=== PATIENT | female | born 1975 | race Caucasian/White ===

== ENCOUNTER 2020-03-01 15:06 | Inpatient (IN) | payer BC, OTHER ==
[~2020-03-01] VITALS: Ht 182.9 cm; Wt 95.8 kg
--- NOTE | 2020-03-01 15:13 | NUR ---
No answer from lobby when pt called for triage.
[2020-03-01] MEDS ORDERED: ONDANSETRON 2MG/ML, 2ML ONE (15:44)
[2020-03-01] MEDS ORDERED: LORazepam 2 MG/ML, 1ML ONE ×3 (15:45→18:32)
[2020-03-01 15:55] LABS: BASOPHILS # (AUTO) 0.01 x10^3/uL (0-0.1); BASOPHILS % (AUTO) 0 % (0-1); EOSINOPHILS # (AUTO) 0.05 x10^3/uL (0-0.4); EOSINOPHILS % (AUTO) 0 % (1-7); LYMPHOCYTES # (AUTO) 3.63 x10^3/uL (1-3.4); LYMPHOCYTES % (AUTO) 31 % (22-44); MD NO; MEAN CORPUSCULAR HEMOGLOBIN 26.7 pg (27.0-34.8); MEAN CORPUSCULAR HGB CONC 32.8 g/dL (32.4-35.8); MEAN CORPUSCULAR VOLUME 81.3 fL (80-100); MEAN PLATELET VOLUME 8.6 fL (7.4-10.4); MONOCYTES # (AUTO) 0.45 x10^3/uL (0.2-0.8); MONOCYTES % (AUTO) 4 % (2-9); NEUTROPHILS # (AUTO) 7.66 x10^3/uL (1.8-6.8); NEUTROPHILS % (AUTO) 65 % (42-75); PLATELET COUNT 364 x10^3/uL (130-400); RED BLOOD COUNT 4.99 x10^6/uL (3.82-5.3); RED CELL DISTRIBUTION WIDTH 17.7 % (9.6-15.2)
[2020-03-01] MEDS: LORazepam 2 MG/ML, 1ML IVPush PRN ×5 (15:57→21:35)
--- NOTE | 2020-03-01 15:58 | NUR ---
PT MEDICATED PER NOV. PARENT AT BEDSIDE. SZ PRECAUTIONS IN PLACE.
[2020-03-01] MEDS ORDERED: ONDANSETRON 2MG/ML, 2ML IVPush ONE (16:00)
[2020-03-01] MEDS ORDERED: THIAMINE 100 MG in SODIUM CHLORIDE 0.9% 50 ML IVPB ONE (16:00)
[2020-03-01] MEDS ORDERED: SODIUM CHLORIDE 0.9% 1,000ML IVBOLUS ONE ×2 (16:00→19:00)
[2020-03-01 16:07] LABS: ALANINE AMINOTRANSFERASE 37 U/L (12-78); ALBUMIN 3.8 g/dL (3.4-5.0); ANION GAP 14 mmol/L (5-15); CALCIUM 8.2 mg/dL (8.5-10.1); CHLORIDE 97 mmol/L (98-107); CREATININE 0.78 mg/dL (0.55-1.02)
[2020-03-01 16:10] LABS: ALKALINE PHOSPHATASE 91 U/L (45-117); BILIRUBIN,TOTAL 0.8 mg/dL (0.2-1.0); TOTAL PROTEIN 7.8 g/dL (6.4-8.2)
--- NOTE | 2020-03-01 16:39 | NUR ---
PT RESTING ON [place]. [place]. MOTHER AT BEDSIDE.
--- NOTE | 2020-03-01 17:50 | NUR ---
REPORT TO TITUS GELLER.
--- NOTE | 2020-03-01 18:08 | NUR ---
HOSPITALIST AT BEDSIDE.
[2020-03-01] MEDS ORDERED: CHLORDIAZEPOXIDE 25 MG CAPSULE PO PRN (18:30)
[2020-03-01] MEDS ORDERED: POLYETHYLENE GLYCOL 17 GM PACKET PO PRN (18:30)
[2020-03-01] MEDS ORDERED: BISACODYL 10 MG SUPP PR PRN (18:30)
[2020-03-01] MEDS ORDERED: ONDANSETRON 2MG/ML, 2ML IVPush PRN (18:30)
[2020-03-01] MEDS ORDERED: hydrALAzine 20 MG/ML, 1ML IVPush PRN (18:30)
--- NOTE | 2020-03-01 18:43 | NUR ---
MEDS ADMIN PER MAR AND HOSPITALIST.
[2020-03-01] MEDS ORDERED: POTASSIUM CHLORIDE 20 MEQ, MAGNESIUM SULFATE 1 GM, THIAMINE 200 MG, FOLIC ACID 1 MG, MV... IV SCH ×2 (19:00)
[2020-03-02 00:07] VITALS: BP 109/69
[2020-03-02] MEDS: LORazepam 2 MG/ML, 1ML IVPush PRN ×5 (01:34→08:58)
[2020-03-02 05:26] LABS: INTERNATIONAL NORMALIZED RATIO 1.12 (0.93-1.1); PROTHROMBIN TIME 11.9 Seconds (9.6-11.5)
[2020-03-02 05:31] LABS: CHLORIDE 106 mmol/L (98-107)
[2020-03-02 05:40] LABS: ALANINE AMINOTRANSFERASE 34 U/L (12-78); ALBUMIN 3.3 g/dL (3.4-5.0); ALKALINE PHOSPHATASE 83 U/L (45-117); ANION GAP 13 mmol/L (5-15); BILIRUBIN,TOTAL 1.2 mg/dL (0.2-1.0); CREATININE 0.64 mg/dL (0.55-1.02)
[2020-03-02 06:27] LABS: BASOPHILS # (AUTO) 0.02 x10^3/uL (0-0.1); BASOPHILS % (AUTO) 0 % (0-1); EOSINOPHILS # (AUTO) 0.02 x10^3/uL (0-0.4); EOSINOPHILS % (AUTO) 0 % (1-7); LYMPHOCYTES # (AUTO) 1.63 x10^3/uL (1-3.4); LYMPHOCYTES % (AUTO) 19 % (22-44); MD NO; MEAN CORPUSCULAR HEMOGLOBIN 26.4 pg (27.0-34.8); MEAN CORPUSCULAR HGB CONC 32.2 g/dL (32.4-35.8); MEAN PLATELET VOLUME 7.8 fL (7.4-10.4); MONOCYTES # (AUTO) 0.63 x10^3/uL (0.2-0.8); MONOCYTES % (AUTO) 7 % (2-9); NEUTROPHILS # (AUTO) 6.47 x10^3/uL (1.8-6.8); NEUTROPHILS % (AUTO) 74 % (42-75); PLATELET COUNT 270 x10^3/uL (130-400); RED BLOOD COUNT 4.57 x10^6/uL (3.82-5.3); RED CELL DISTRIBUTION WIDTH 17.5 % (9.6-15.2)
[2020-03-02 07:03] LABS: MICROSCOPIC INDICATED
[2020-03-02 07:08] VITALS: BP 150/88
[2020-03-02] MEDS: PANTOPRAZOLE 40MG TABLET PO SCH (07:34)
[2020-03-02] MEDS: SENNA/DOCUSATE TABLET PO SCH (09:00)
[2020-03-02] MEDS: DULOXETINE 30 MG CAPSULE.DR PO SCH (09:09)
[2020-03-02] MEDS ORDERED: PHENOBARBITAL ETOH DETOX PER PHARMACY MC PRN (10:00)
[2020-03-02] MEDS ORDERED: PHENOBARBITAL SODIUM 780 MG in SODIUM CHLORIDE 0.9% 50 ML IV ONE (10:30)
[2020-03-02] MEDS: ENOXAPARIN 40 MG/0.4 ML SQ SCH (10:50)
[2020-03-02] MEDS ORDERED: PHENOBARBITAL SODIUM IV ONE (13:00)
[2020-03-02] MEDS ORDERED: SODIUM CHLORIDE 0.9% IV ONE (13:00)
[2020-03-02] MEDS: LACTATED RINGERS 1,000 ML IV SCH (17:30)
[2020-03-02] MEDS: ACETAMINOPHEN 325 MG TABLET PO PRN (21:10)
[2020-03-03] MEDS: PHENOBARBITAL 20 MG/5 ML ORAL SOL PO SCH ×2 (00:44→12:30)
[2020-03-03] MEDS: LACTATED RINGERS 1,000 ML IV SCH (04:24)
[2020-03-03] MEDS ORDERED: POTASSIUM CHLORIDE 20 MEQ, MAGNESIUM SULFATE 1 GM, MVI ADULT 10 ML, THIAMINE 200 MG, FO... IV SCH (05:00)
[2020-03-03 05:25] LABS: ALANINE AMINOTRANSFERASE 29 U/L (12-78); ALBUMIN 2.9 g/dL (3.4-5.0); ANION GAP 7 mmol/L (5-15); CALCIUM 7.7 mg/dL (8.5-10.1); CHLORIDE 104 mmol/L (98-107)
[2020-03-03 05:27] LABS: ALKALINE PHOSPHATASE 83 U/L (45-117); BILIRUBIN,TOTAL 1.6 mg/dL (0.2-1.0); TOTAL PROTEIN 6.3 g/dL (6.4-8.2)
[2020-03-03 05:30] LABS: BASOPHILS # (AUTO) 0.03 x10^3/uL (0-0.1); BASOPHILS % (AUTO) 0 % (0-1); EOSINOPHILS # (AUTO) 0.22 x10^3/uL (0-0.4); EOSINOPHILS % (AUTO) 3 % (1-7); LYMPHOCYTES # (AUTO) 2.46 x10^3/uL (1-3.4); LYMPHOCYTES % (AUTO) 29 % (22-44); MD NO; MEAN CORPUSCULAR HGB CONC 32.9 g/dL (32.4-35.8); MEAN CORPUSCULAR VOLUME 81.9 fL (80-100); MEAN PLATELET VOLUME 9.4 fL (7.4-10.4); MONOCYTES # (AUTO) 0.58 x10^3/uL (0.2-0.8); MONOCYTES % (AUTO) 7 % (2-9); NEUTROPHILS % (AUTO) 61 % (42-75); PLATELET COUNT 220 x10^3/uL (130-400); RED BLOOD COUNT 4.45 x10^6/uL (3.82-5.3); RED CELL DISTRIBUTION WIDTH 17.7 % (9.6-15.2)
[2020-03-03] MEDS: PANTOPRAZOLE 40MG TABLET PO SCH (07:49)
[2020-03-03] MEDS: SENNA/DOCUSATE TABLET PO SCH (07:50)
[2020-03-03] MEDS: DULOXETINE 30 MG CAPSULE.DR PO SCH (07:50)
[2020-03-03] MEDS: FOLIC ACID 1 MG TABLET PO SCH (07:50)
[2020-03-03] MEDS: THIAMINE 100MG TABLET PO SCH (07:50)
[2020-03-03] MEDS: ENOXAPARIN 40 MG/0.4 ML SQ SCH (09:07)
[2020-03-03 13:39] VITALS: BP 138/87
[2020-03-03 20:40] VITALS: BP 155/89
[2020-03-04 00:28] VITALS: BP 119/82
[2020-03-04] MEDS: PHENOBARBITAL 20 MG/5 ML ORAL SOL PO SCH (00:44)
[2020-03-04] MEDS: ACETAMINOPHEN 325 MG TABLET PO PRN ×2 (00:44→16:34)
[2020-03-04 06:43] VITALS: BP 136/93
[2020-03-04] MEDS: SENNA/DOCUSATE TABLET PO SCH (07:34)
[2020-03-04] MEDS: THIAMINE 100MG TABLET PO SCH (07:35)
[2020-03-04] MEDS: DULOXETINE 30 MG CAPSULE.DR PO SCH (07:35)
[2020-03-04] MEDS: FOLIC ACID 1 MG TABLET PO SCH (07:35)
[2020-03-04] MEDS: PANTOPRAZOLE 40MG TABLET PO SCH (07:35)
[2020-03-04] MEDS: ENOXAPARIN 40 MG/0.4 ML SQ SCH (09:41)
[2020-03-04 12:05] VITALS: BP 131/85
[2020-03-04 19:13] VITALS: BP 133/88
[2020-03-04] MEDS: CHLORDIAZEPOXIDE 10 MG CAPSULE PO SCH (21:20)
[2020-03-05] MEDS ORDERED: PHENOBARBITAL 20 MG/5 ML ORAL SOL PO SCH (01:00)
[2020-03-05 02:00] VITALS: BP 126/83
[2020-03-05] MEDS: LORazepam 1MG TABLET PO PRN ×2 (06:24→12:36)
[2020-03-05 06:41] VITALS: BP 137/94
[2020-03-05] MEDS: SENNA/DOCUSATE TABLET PO SCH (09:00)
[2020-03-05] MEDS ORDERED: DULO30CA2 PO (09:48)
[2020-03-05] MEDS ORDERED: CHLO10CA6 PO (09:48)
[2020-03-05] MEDS: FOLIC ACID 1 MG TABLET PO SCH (10:17)
[2020-03-05] MEDS: CHLORDIAZEPOXIDE 10 MG CAPSULE PO SCH (10:17)
[2020-03-05] MEDS: THIAMINE 100MG TABLET PO SCH (10:17)
[2020-03-05] MEDS: DULOXETINE 30 MG CAPSULE.DR PO SCH (10:17)
[2020-03-05] MEDS: ENOXAPARIN 40 MG/0.4 ML SQ SCH (10:18)
[2020-03-05 12:15] VITALS: BP 123/85
[2020-03-05] MEDS ORDERED: QUET25TA5 PO (12:15)
[2020-03-05] MEDS ORDERED: TRAZ-175 PO (12:15)
[2020-03-07] MEDS ORDERED: PHENOBARBITAL 20 MG/5 ML ORAL SOL PO SCH (01:00)
[2020-03-08] MEDS ORDERED: PHENOBARBITAL 20 MG/5 ML ORAL SOL PO SCH (01:00)
== END 2020-03-05 13:15 | disposition home or self-care (01) | DRG 392 ==
LOC: ED 15:41 → EDIP 17:13 → 4EST 19:08 → CCU 03-02 10:07 → 4EST 03-03 13:21 → DCLOUNGE 03-05 13:05
PROVIDERS: ADMIT Family Medicine; ATTEND Internal Medicine
DX: R10.9 Unspecified abdominal pain (principal); F10.239 Alcohol dependence with withdrawal, unspecified; F32.9 Major depressive disorder, single episode, unspecified; F41.9 Anxiety disorder, unspecified; I10 Essential (primary) hypertension; Z79.899 Other long term (current) drug therapy
CPT/HCPCS: 36415; 71045; 80053; 81001; 82728; 83036; 83690; 83735; 84100; 84703; 85025; 85610; 87081; 87338; 93005; 96361; 96374; 99285; G0378; J1650; J2405; J2560; J3411; J3475; J3480; J2060; J7030; J7120

== ENCOUNTER 2020-04-23 16:12 | Inpatient (IN) | payer BC ==
[~2020-04-23] VITALS: Ht 180.3 cm; Wt 89.9 kg
[~2020-04-23 16:12] MED LIST: CHLO10CA6 PO; DULO30CA2 PO; QUET25TA5 PO; TRAZ-175 PO
[2020-04-23] MEDS ORDERED: LORazepam 2 MG/ML, 1ML ONE (16:25)
[2020-04-23] MEDS ORDERED: LORazepam 2 MG/ML, 1ML IVPush PRN (16:30)
[2020-04-23 16:48] LABS: MEAN CORPUSCULAR HEMOGLOBIN 26.9 pg (27.0-34.8); MEAN CORPUSCULAR HGB CONC 33.5 g/dL (32.4-35.8); MEAN CORPUSCULAR VOLUME 80.5 fL (80-100); MEAN PLATELET VOLUME 9.6 fL (7.4-10.4); PLATELET COUNT 190 x10^3/uL (130-400); RED BLOOD COUNT 4.38 x10^6/uL (3.82-5.3); RED CELL DISTRIBUTION WIDTH 16.6 % (9.6-15.2)
[2020-04-23 16:49] LABS: MD YES
--- NOTE | 2020-04-23 16:56 | NUR ---
BIB CARE FLIGHT, PLUMAS. +SEIZURE ACTIVITY TODAY AND INCREASED LETHARGY. Na+ 108, K+ 2.4. HX +COVID 2 WEEKS AGO AT HOME ON SELF ISSOLATION. INCREASED ALCOHOL INTAKE WHILE ON ISSOLATION. DR MARIE AT BEDSIDE, PT ASSESSMENT REVIEWED, POC DISCUSSED AND QUESTIONS ANSWERED. PT ON ALL MONITORS AND EKG COMPLETED. 2ND PIV ACCESS OBTAINED AND LABS DRAWN. PT MED NOTED WITH 1MG ATIVAN 2/2 ANXIETY WITH EFFECT. VSS. CALL LIGHT W/I REACH. SIDE RAILS PADDED FOR SEIZURE PRECAUTIONS.
[2020-04-23] MEDS ORDERED: DOXYCYCLINE 100 MG in DEXTROSE 5% 250 ML IV SCH (17:00)
[2020-04-23] MEDS ORDERED: SODIUM CHLORIDE 3% 500 ML IV PRN (17:00)
[2020-04-23] MEDS ORDERED: CEFTRIAXONE PMX 1GM/50ML 50 ML IVPB ONE (17:00)
[2020-04-23] MEDS ORDERED: POTASSIUM CHLORIDE 40 MEQ in SODIUM CHLORIDE 0.9% 500 ML IV ONE (17:00)
[2020-04-23 17:01] LABS: ALANINE AMINOTRANSFERASE 35 U/L (12-78); ALBUMIN 2.7 g/dL (3.4-5.0); ANION GAP 15 mmol/L (5-15); CALCIUM 7.2 mg/dL (8.5-10.1); CHLORIDE 68 mmol/L (98-107); CREATININE 0.58 mg/dL (0.55-1.02)
[2020-04-23 17:03] LABS: ALKALINE PHOSPHATASE 99 U/L (45-117); BILIRUBIN,TOTAL 1.8 mg/dL (0.2-1.0); TOTAL PROTEIN 6.5 g/dL (6.4-8.2)
[2020-04-23] MEDS ORDERED: SODIUM CHLORIDE 0.9% 1,000 ML IV SCH (17:21)
[2020-04-23] MEDS ORDERED: ENALAPRILAT 1.25 MG/ML, 2ML IVPush PRN (17:30)
[2020-04-23] MEDS ORDERED: LABETALOL 5MG/ML, 20ML IVPush PRN (17:30)
[2020-04-23] MEDS ORDERED: ONDANSETRON 2MG/ML, 2ML IVPush PRN (17:30)
[2020-04-23] MEDS ORDERED: BISACODYL 10 MG SUPP PR PRN (17:30)
[2020-04-23] MEDS ORDERED: POLYETHYLENE GLYCOL 17 GM PACKET PO PRN (17:30)
[2020-04-23] MEDS ORDERED: SODIUM CHLORIDE FLUSH 10ML SYR IVF ONE (17:30)
[2020-04-23] MEDS ORDERED: OXYcodone IR 5MG TABLET PO PRN (17:30)
[2020-04-23 17:58] LABS: BAND#(MANUAL) 1.13 x10^3/uL; BANDS%(MANUAL) 6 % (0-7); LYMPH#(MANUAL) 1.13 x10^3/uL (1-3.4); LYMPHS% (MANUAL) 6 % (22-44); MONOS#(MANUAL) 0.75 x10^3/uL (0.3-2.7); MONOS% (MANUAL) 4 % (2-9); SEG#(MANUAL) 15.79 x10^3/uL (1.8-6.8); SEGS% (MANUAL) 84 % (42-75)
[2020-04-23] MEDS ORDERED: SODIUM PHOSPHATE 20 MMOL in SODIUM CHLORIDE 0.9% 500 ML IV ONE (18:00)
[2020-04-23] MEDS ORDERED: MAGNESIUM SULFATE PMX 2GM/50ML 50 ML IV ONE (18:00)
[2020-04-23] MEDS ORDERED: SODIUM CHLORIDE 0.9% 1,000 ML IV ONE (18:00)
[2020-04-23 18:01] LABS: <PLATELET ESTIMATE> ADEQUATE; <PLT MORPHOLOGY> NORMAL PLT MORPH; HYPOCHROMIA 1+; MICROCYTOSIS 1+
[2020-04-23 18:02] LABS: PAPPENHEIMER BODIES 1+
[2020-04-23] MEDS: DOXYCYCLINE 100 MG in DEXTROSE 5% 250 ML IV SCH (18:27)
[2020-04-23] MEDS: THIAMINE 200 MG in SODIUM CHLORIDE 0.9% 50 ML IV SCH (18:38)
[2020-04-23] MEDS ORDERED: CEFTRIAXONE PMX 1GM/50ML 50 ML ONE (18:44)
[2020-04-23] MEDS: CEFTRIAXONE PMX 1GM/50ML 50 ML IV SCH (18:48)
[2020-04-23] MEDS: CHLORDIAZEPOXIDE 25 MG CAPSULE PO SCH ×2 (19:39→20:25)
[2020-04-23 20:29] LABS: ANION GAP 14 mmol/L (5-15); CHLORIDE 69 mmol/L (98-107); CREATININE 0.53 mg/dL (0.55-1.02)
[2020-04-23] MEDS ORDERED: POTASSIUM CHLORIDE 20 MEQ TAB.ER.PRT PO ONE (21:00)
[2020-04-23] MEDS: SODIUM CHLORIDE 1 GM TABLET PO SCH (21:39)
[2020-04-23 21:40] VITALS: BP 138/78
[2020-04-23 21:49] LABS: MICROSCOPIC NOT IND
[2020-04-23] MEDS: LORazepam 2 MG/ML, 1ML IVPush PRN (22:47)
[2020-04-24 01:10] LABS: CALCIUM 6.6 mg/dL (8.5-10.1); CHLORIDE 78 mmol/L (98-107); CREATININE 0.38 mg/dL (0.55-1.02)
[2020-04-24 01:30] LABS: ANION GAP 13 mmol/L (5-15)
[2020-04-24] MEDS: LORazepam 2 MG/ML, 1ML IVPush PRN ×2 (01:54→08:40)
[2020-04-24 05:00] VITALS: BP 123/80
[2020-04-24] MEDS: DOXYCYCLINE 100 MG in DEXTROSE 5% 250 ML IV SCH ×2 (05:38→17:30)
[2020-04-24] MEDS: CHLORDIAZEPOXIDE 25 MG CAPSULE PO SCH ×4 (05:38→20:14)
[2020-04-24] MEDS: SODIUM CHLORIDE 1 GM TABLET PO SCH (05:49)
[2020-04-24 06:05] LABS: BASOPHILS % (AUTO) 0 % (0-1); EOSINOPHILS % (AUTO) 0 % (1-7); LYMPHOCYTES # (AUTO) 0.87 x10^3/uL (1-3.4); LYMPHOCYTES % (AUTO) 7 % (22-44); MD NO; MEAN CORPUSCULAR HEMOGLOBIN 26.7 pg (27.0-34.8); MEAN CORPUSCULAR HGB CONC 32.5 g/dL (32.4-35.8); MEAN CORPUSCULAR VOLUME 82.3 fL (80-100); MEAN PLATELET VOLUME 10.5 fL (7.4-10.4); MONOCYTES # (AUTO) 1.23 x10^3/uL (0.2-0.8); MONOCYTES % (AUTO) 10 % (2-9); NEUTROPHILS # (AUTO) 10.68 x10^3/uL (1.8-6.8); NEUTROPHILS % (AUTO) 84 % (42-75); PLATELET COUNT 170 x10^3/uL (130-400); RED BLOOD COUNT 4.31 x10^6/uL (3.82-5.3); RED CELL DISTRIBUTION WIDTH 16.8 % (9.6-15.2)
[2020-04-24 06:13] LABS: ALBUMIN 2.5 g/dL (3.4-5.0); ANION GAP 11 mmol/L (5-15); CHLORIDE 80 mmol/L (98-107)
[2020-04-24 06:18] LABS: ALANINE AMINOTRANSFERASE 30 U/L (12-78); ALKALINE PHOSPHATASE 80 U/L (45-117); BILIRUBIN,TOTAL 1.1 mg/dL (0.2-1.0); CREATININE 0.54 mg/dL (0.55-1.02)
[2020-04-24] MEDS ORDERED: SODIUM PHOSPHATE 20 MMOL in SODIUM CHLORIDE 0.9% 500 ML IV ONE (07:00)
[2020-04-24 08:00] VITALS: BP 155/92
[2020-04-24] MEDS ORDERED: SODIUM PHOSPHATE 20 MMOL in SODIUM CHLORIDE 0.9% 250 ML IV ONE (08:00)
[2020-04-24] MEDS: PANTOPRAZOLE 40MG TABLET PO SCH (08:29)
[2020-04-24] MEDS: POTASSIUM CHLORIDE 20 MEQ TAB.ER.PRT PO SCH ×2 (08:30→17:00)
[2020-04-24] MEDS: ENOXAPARIN 40 MG/0.4 ML SQ SCH (08:31)
[2020-04-24] MEDS: SENNA/DOCUSATE TABLET PO SCH (08:39)
[2020-04-24] MEDS: THIAMINE 200 MG in SODIUM CHLORIDE 0.9% 50 ML IV SCH (08:45)
[2020-04-24] MEDS: CALCIUM CARBONATE 500 MG TAB.CHEW PO SCH ×2 (09:00→20:14)
[2020-04-24 10:48] LABS: ANION GAP 6 mmol/L (5-15); CALCIUM 7.3 mg/dL (8.5-10.1); CHLORIDE 84 mmol/L (98-107)
[2020-04-24] MEDS: DULOXETINE 30 MG CAPSULE.DR PO SCH (11:07)
[2020-04-24 13:18] VITALS: BP 127/73
[2020-04-24 14:38] LABS: ANION GAP 10 mmol/L (5-15); CALCIUM 7.1 mg/dL (8.5-10.1); CHLORIDE 84 mmol/L (98-107); CREATININE 0.48 mg/dL (0.55-1.02)
[2020-04-24] MEDS ORDERED: POTASSIUM CHLORIDE 20 MEQ TAB.ER.PRT PO ONE (15:30)
[2020-04-24] MEDS: SODIUM CHLORIDE 0.9% 1,000 ML IV SCH (17:21)
[2020-04-24] MEDS ORDERED: SODIUM CHLORIDE 0.9% 1,000 ML IV SCH (17:21)
[2020-04-24] MEDS: CEFTRIAXONE PMX 1GM/50ML 50 ML IV SCH (18:45)
[2020-04-24 19:52] VITALS: BP 129/82
[2020-04-24] MEDS: TRAZODONE 100MG TABLET PO SCH (20:14)
[2020-04-24 20:41] LABS: ANION GAP 9 mmol/L (5-15); CALCIUM 7.4 mg/dL (8.5-10.1); CHLORIDE 87 mmol/L (98-107); CREATININE 0.49 mg/dL (0.55-1.02)
[2020-04-24 21:11] LABS: ANION GAP 11 mmol/L (5-15); CALCIUM 7.2 mg/dL (8.5-10.1); CHLORIDE 87 mmol/L (98-107); CREATININE 0.48 mg/dL (0.55-1.02)
[2020-04-24] MEDS ORDERED: LORazepam 0.5MG TABLET PO ONE (23:30)
[2020-04-25 00:20] VITALS: BP 111/72
[2020-04-25 01:09] LABS: ANION GAP 7 mmol/L (5-15); CALCIUM 7.2 mg/dL (8.5-10.1); CHLORIDE 92 mmol/L (98-107); CREATININE 0.39 mg/dL (0.55-1.02)
[2020-04-25] MEDS: DOXYCYCLINE 100 MG in DEXTROSE 5% 250 ML IV SCH ×2 (06:03→17:11)
[2020-04-25] MEDS: SODIUM CHLORIDE 0.9% 1,000 ML IV SCH (06:03)
[2020-04-25] MEDS: CHLORDIAZEPOXIDE 25 MG CAPSULE PO SCH ×4 (06:03→20:03)
[2020-04-25 06:41] LABS: CHLORIDE 95 mmol/L (98-107)
[2020-04-25 06:54] LABS: ANION GAP 8 mmol/L (5-15); CALCIUM 7.3 mg/dL (8.5-10.1); CREATININE 0.46 mg/dL (0.55-1.02)
[2020-04-25 07:07] VITALS: BP 148/78
[2020-04-25] MEDS: PANTOPRAZOLE 40MG TABLET PO SCH (07:30)
[2020-04-25] MEDS: SENNA/DOCUSATE TABLET PO SCH (07:35)
[2020-04-25] MEDS: ENOXAPARIN 40 MG/0.4 ML SQ SCH (08:00)
[2020-04-25] MEDS: DULOXETINE 30 MG CAPSULE.DR PO SCH (08:13)
[2020-04-25] MEDS: CALCIUM CARBONATE 500 MG TAB.CHEW PO SCH ×2 (08:14→20:03)
[2020-04-25] MEDS: THIAMINE 200 MG in SODIUM CHLORIDE 0.9% 50 ML IV SCH (09:00)
[2020-04-25] MEDS: LORazepam 2 MG/ML, 1ML IVPush PRN ×2 (09:33→23:05)
[2020-04-25 13:22] VITALS: BP 122/85
[2020-04-25 17:01] LABS: CLOSTRIDIUM DIFFICILE ANTIGEN NEGATIVE; CLOSTRIDIUM DIFFICILE TOXIN NEGATIVE (Negative)
[2020-04-25] MEDS: CEFTRIAXONE PMX 1GM/50ML 50 ML IV SCH (19:04)
[2020-04-25 19:39] VITALS: BP 140/83
[2020-04-25] MEDS: TRAZODONE 100MG TABLET PO SCH (20:03)
[2020-04-26] MEDS: SODIUM CHLORIDE 0.9% 1,000 ML IV SCH ×2 (01:07→20:26)
[2020-04-26 01:20] VITALS: BP 146/87
[2020-04-26] MEDS: CHLORDIAZEPOXIDE 25 MG CAPSULE PO SCH ×4 (05:23→22:19)
[2020-04-26] MEDS: DOXYCYCLINE 100 MG in DEXTROSE 5% 250 ML IV SCH ×2 (05:23→17:32)
[2020-04-26 07:14] VITALS: BP 133/95
[2020-04-26] MEDS: CALCIUM CARBONATE 500 MG TAB.CHEW PO SCH ×2 (08:32→22:19)
[2020-04-26] MEDS: SENNA/DOCUSATE TABLET PO SCH (08:32)
[2020-04-26] MEDS: ENOXAPARIN 40 MG/0.4 ML SQ SCH (08:32)
[2020-04-26] MEDS: DULOXETINE 30 MG CAPSULE.DR PO SCH (08:32)
[2020-04-26] MEDS: PANTOPRAZOLE 40MG TABLET PO SCH (08:32)
[2020-04-26] MEDS: LORazepam 2 MG/ML, 1ML IVPush PRN (10:16)
[2020-04-26] MEDS: THIAMINE 200 MG in SODIUM CHLORIDE 0.9% 50 ML IV SCH (10:16)
[2020-04-26 12:56] VITALS: BP 142/90
[2020-04-26 18:39] VITALS: BP 143/89
[2020-04-26] MEDS: CEFTRIAXONE PMX 1GM/50ML 50 ML IV SCH (20:25)
[2020-04-26] MEDS: TRAZODONE 100MG TABLET PO SCH (22:19)
[2020-04-27 00:08] VITALS: BP 138/92
[2020-04-27 05:56] LABS: ANION GAP 8 mmol/L (5-15); CALCIUM 8.3 mg/dL (8.5-10.1); CHLORIDE 102 mmol/L (98-107); CREATININE 0.44 mg/dL (0.55-1.02)
[2020-04-27 05:57] LABS: MEAN CORPUSCULAR HEMOGLOBIN 27.2 pg (27.0-34.8); MEAN CORPUSCULAR HGB CONC 32.6 g/dL (32.4-35.8); MEAN CORPUSCULAR VOLUME 83.4 fL (80-100); MEAN PLATELET VOLUME 8.6 fL (7.4-10.4); PLATELET COUNT 192 x10^3/uL (130-400); RED BLOOD COUNT 4.05 x10^6/uL (3.82-5.3); RED CELL DISTRIBUTION WIDTH 17.5 % (9.6-15.2)
[2020-04-27] MEDS: SODIUM CHLORIDE 0.9% 1,000 ML IV SCH (06:00)
[2020-04-27] MEDS: CHLORDIAZEPOXIDE 25 MG CAPSULE PO SCH (06:11)
[2020-04-27] MEDS: DOXYCYCLINE 100 MG in DEXTROSE 5% 250 ML IV SCH (06:11)
[2020-04-27 06:15] VITALS: BP 130/85
[2020-04-27 07:25] LABS: MD YES
[2020-04-27 07:29] LABS: BANDS%(MANUAL) 2 % (0-7); EOS#(MANUAL) 0.35 x10^3/uL (0.0-0.4); EOS% (MANUAL) 7 % (1-7); LYMPH#(MANUAL) 2.15 x10^3/uL (1-3.4); LYMPHS% (MANUAL) 43 % (22-44); MONOS#(MANUAL) 0.95 x10^3/uL (0.3-2.7); MONOS% (MANUAL) 19 % (2-9); SEG#(MANUAL) 1.45 x10^3/uL (1.8-6.8); SEGS% (MANUAL) 29 % (42-75)
[2020-04-27 07:32] LABS: ANISOCYTOSIS 1+
[2020-04-27 07:35] LABS: POLYCHROMASIA 1+
[2020-04-27 07:37] LABS: <PLATELET ESTIMATE> ADEQUATE; <PLT MORPHOLOGY> NORMAL PLT MORPH
[2020-04-27] MEDS: DULOXETINE 30 MG CAPSULE.DR PO SCH (07:51)
[2020-04-27] MEDS: CALCIUM CARBONATE 500 MG TAB.CHEW PO SCH ×2 (07:51→20:43)
[2020-04-27] MEDS: PANTOPRAZOLE 40MG TABLET PO SCH (07:51)
[2020-04-27] MEDS: SENNA/DOCUSATE TABLET PO SCH (07:52)
[2020-04-27] MEDS: ENOXAPARIN 40 MG/0.4 ML SQ SCH (07:52)
[2020-04-27] MEDS ORDERED: POTASSIUM CHLORIDE 20 MEQ TAB.ER.PRT PO ONE ×2 (08:30→18:30)
[2020-04-27] MEDS ORDERED: MAGNESIUM SULFATE PMX 2GM/50ML 50 ML IV ONE (08:30)
[2020-04-27] MEDS: THIAMINE 200 MG in SODIUM CHLORIDE 0.9% 50 ML IV SCH (08:39)
[2020-04-27] MEDS: LORazepam 2 MG/ML, 1ML IVPush PRN (09:47)
[2020-04-27] MEDS ORDERED: LORazepam 2 MG/ML, 1ML IVPush PRN (11:00)
[2020-04-27] MEDS ORDERED: LORazepam 2 MG/ML, 1ML IVPush ONE (11:00)
[2020-04-27 12:03] VITALS: BP 143/94
[2020-04-27] MEDS: CEFTRIAXONE PMX 1GM/50ML 50 ML IV SCH (18:22)
[2020-04-27 20:00] VITALS: BP 136/89
[2020-04-27] MEDS: TRAZODONE 100MG TABLET PO SCH (20:43)
[2020-04-27] MEDS ORDERED: DOXYCYCLINE 100MG TABLET PO SCH (21:00)
[2020-04-28 02:04] VITALS: BP 137/90
[2020-04-28 04:41] LABS: ANION GAP 6 mmol/L (5-15); CALCIUM 8.2 mg/dL (8.5-10.1); CHLORIDE 105 mmol/L (98-107); CREATININE 0.52 mg/dL (0.55-1.02)
[2020-04-28 05:00] LABS: MEAN CORPUSCULAR HEMOGLOBIN 27.4 pg (27.0-34.8); MEAN CORPUSCULAR HGB CONC 32.9 g/dL (32.4-35.8); MEAN CORPUSCULAR VOLUME 83.4 fL (80-100); MEAN PLATELET VOLUME 8.3 fL (7.4-10.4); PLATELET COUNT 187 x10^3/uL (130-400); RED BLOOD COUNT 3.88 x10^6/uL (3.82-5.3); RED CELL DISTRIBUTION WIDTH 18.1 % (9.6-15.2)
[2020-04-28 05:42] LABS: MD YES
[2020-04-28 05:43] LABS: LYMPH#(MANUAL) 2.03 x10^3/uL (1-3.4); LYMPHS% (MANUAL) 45 % (22-44); SEG#(MANUAL) 1.76 x10^3/uL (1.8-6.8); SEGS% (MANUAL) 39 % (42-75)
[2020-04-28 05:44] LABS: EOS#(MANUAL) 0.18 x10^3/uL (0.0-0.4); EOS% (MANUAL) 4 % (1-7); HYPOCHROMIA 1+; MONOS#(MANUAL) 0.54 x10^3/uL (0.3-2.7); MONOS% (MANUAL) 12 % (2-9)
[2020-04-28 05:45] LABS: <PLATELET ESTIMATE> ADEQUATE; <PLT MORPHOLOGY> NORMAL PLT MORPH; ANISOCYTOSIS 1+
[2020-04-28 06:30] VITALS: BP 150/90
[2020-04-28] MEDS: DULOXETINE 30 MG CAPSULE.DR PO SCH (08:26)
[2020-04-28] MEDS: ENOXAPARIN 40 MG/0.4 ML SQ SCH (08:26)
[2020-04-28] MEDS: PANTOPRAZOLE 40MG TABLET PO SCH (08:26)
[2020-04-28] MEDS: SENNA/DOCUSATE TABLET PO SCH (09:00)
[2020-04-28] MEDS: CALCIUM CARBONATE 500 MG TAB.CHEW PO SCH (09:00)
[2020-04-28] MEDS ORDERED: MULTIVITAMIN 1 TABLET PO SCH (09:30)
[2020-04-28] MEDS ORDERED: FOLIC ACID 1 MG TABLET PO SCH (09:30)
[2020-04-28] MEDS ORDERED: THIAMINE 100MG TABLET PO SCH (09:30)
[2020-04-28] MEDS ORDERED: LACTULOSE 20 GM/30 ML UDC PO PRN (10:00)
[2020-04-28 12:57] VITALS: BP 124/80
[2020-04-28] MEDS ORDERED: THIA100T67 PO (14:08)
[2020-04-28] MEDS ORDERED: MULT-449 PO (14:08)
[2020-04-28] MEDS ORDERED: FOLI-17 PO (14:08)
== END 2020-04-28 17:15 | disposition home or self-care (01) | DRG 100 ==
LOC: ED 19:24 → EDIP 19:25 → ICU 19:27 → 4EST 04-24 12:53 → 3N 04-25 22:57
PROVIDERS: ADMIT Internal Medicine; ATTEND Hospitalist
DX: R56.9 Unspecified convulsions (principal); J18.9 Pneumonia, unspecified organism; E87.1 Hypo-osmolality and hyponatremia; Z88.0 Allergy status to penicillin; F32.9 Major depressive disorder, single episode, unspecified; K44.9 Diaphragmatic hernia without obstruction or gangrene; E87.8 Other disorders of electrolyte and fluid balance, not elsewhere classified; F10.10 Alcohol abuse, uncomplicated; E87.6 Hypokalemia; I10 Essential (primary) hypertension; Z20.828 Contact with and (suspected) exposure to other viral communicable diseases; Z82.49 Family history of ischemic heart disease and other diseases of the circulatory system
CPT/HCPCS: 36415; 70551; 71045; 80048; 80053; 81003; 82330; 82607; 82728; 83540; 83550; 83605; 83735; 84100; 84132; 84145; 85025; 87040; 87081; 87324; 87635; 93005; G0378; J0696; J1650; J2405; J3411; J3480; J7060; 92523-GN; J2060; J3475; J7030; J7040